=== PATIENT | male | born 1990 | race Caucasian/White ===

== ENCOUNTER 2019-08-26 21:41 | Emergency (ER) | payer OTHER ==
--- NOTE | 2019-08-26 21:47 | ED ---
Psych HPI - General Stated Complaint: Suicidal Ideation Time Seen by Provider: 08/26/19 21:45 - History of Present Illness Initial Comments: The patient is a 29-year-old male with past medical history of depression who presents to the emergency department with reported suicidal ideations. Patient states that he is new to the area. Recently moved here on Friday. Prior to that he was hospitalized in [place] for 8 days. At that time he was having dozier icidal ideations. The placed him on several medications he was discharged home. States he's been unable to sampler pickup his medications because of his health insurance card. Pharmacies have been refusing fill his medications. Because of this he states that his symptoms have been getting out of control. He has felt more depressed the last 3 days. He is having suicidal ideations without a plan. States he's been abusing alcohol and methamphetamines. He is currently homeless. Came to the [facility] because he was told to have several resources. States he has no social support. Reports 2 previous suicide attempts. Did not attempt anything tonight. Patient has a history of hypertension. Has not been taking his high blood pressure medications because he cannot obtain this as well. Denies current intoxication. There are no other alleviating, precipitating or modifying factor Review of Systems ROS Statement: Those systems with pertinent positive or pertinent negative responses have been documented in the HPI. ROS Other: All systems not noted in ROS Statement are negative. General Exam General appearance: alert, in no apparent distress Head exam: Present: atraumatic, normocephalic, normal inspection Eye exam: Present: normal appearance, PERRL, EOMI. Absent: scleral icterus, conjunctival injection, periorbital swelling ENT exam: Present: normal exam, mucous membranes moist Neck exam: Present: normal inspection. Absent: tenderness, meningismus, lymphadenopathy Respiratory exam: Present: normal lung sounds bilaterally. Absent: respiratory distress, wheezes, rales, rhonchi, stridor Cardiovascular Exam: Present: regular rate, normal rhythm, normal heart sounds. Absent: systolic murmur, diastolic murmur, rubs, gallop, clicks GI/Abdominal exam: Present: soft, normal bowel sounds. Absent: distended, tenderness, guarding, rebound, rigid Extremities exam: Present: normal inspection, full ROM, normal capillary refill. Absent: tenderness, pedal edema, joint swelling, calf tenderness Back exam: Present: normal inspection Neurological exam: Present: alert, oriented X3, CN II-XII intact Psychiatric exam: Present: depressed, suicidal ideation Skin exam: Present: warm, dry, intact, normal color. Absent: rash Course Vital Signs 08/26/19 08/27/19 08/27/19 21:48 02:00 06:00 Temperature 98.1 F Pulse Rate 90 86 70 Respiratory 18 18 20 Rate Blood Pressure 162/112 148/90 155/83 O2 Sat by Pulse 99 98 98 Oximetry Medical Decision Making - Medical Decision Making Upon arrival the patient is placed in room 13. A thorough history and physical exam was performed. I did request a urine sample for to patient does provide. Demonstrates small blood with rare mucous. Toxicology shows positive THC. Breathalyzer is negative for alcohol. The patient states he does feel itchiness provided with 50 mg of Benadryl IV mouth. He is cleared for EPS evaluation. He is currently awaiting their assessment. Patient evaluated and inpatient placement was recommended. He was transferred to [facility] in stable condition. - Lab Data Lab Results 08/26/19 Range/Units 22:00 Urine Color Yellow Urine Appearance Clear (Clear) Urine pH 5.5 (5.0-8.0) Ur Specific [place] 1.019 (1.001-1.035) Urine Protein Negative (Negative) Urine Glucose (UA) Negative (Negative) Urine Ketones Negative (Negative) Urine Blood Small H (Negative) Urine Nitrite Negative (Negative) Urine Bilirubin Negative (Negative) Urine Urobilinogen <2.0 (<2.0) mg/dL Ur Leukocyte Esterase Negative (Negative) Urine RBC 5 (0-5) /hpf Urine WBC 1 (0-5) /hpf Ur Squamous Epith Cells <1 (0-4) /hpf Urine Mucus Rare H (None) /hpf Urine Opiates Screen Not Detected (NotDetected) Ur Oxycodone Screen Not Detected (NotDetected) Urine Methadone Screen Not Detected (NotDetected) Ur Propoxyphene Screen Not Detected (NotDetected) Ur Barbiturates Screen Not Detected (NotDetected) U Tricyclic Antidepress Not Detected (NotDetected) Ur Phencyclidine Scrn Not Detected (NotDetected) Ur Amphetamines Screen Not Detected (NotDetected) U Methamphetamines Scrn Not Detected (NotDetected) U Benzodiazepines Scrn Not Detected (NotDetected) Urine Cocaine Screen Not Detected (NotDetected) U Marijuana (THC) Screen Detected H (NotDetected) Disposition Clinical Impression: Depression, Suicidal ideation Disposition: TRANSFER TO PSYCH HOSP/UNIT Condition: Stable Is patient prescribed a controlled substance at d/c from ED?: No Referrals: None,Stated [Primary Care Provider] - 1-2 days - Out of Hospital Transfer - Req. Specs Out of Hospital Transfer - Requested Specifics: Psychiatric Non-ICU
[2019-08-26 22:01] VITALS: TEMP 98.1
[2019-08-26 22:20] LABS: Appearance,Urine Clear (Clear); Bilirubin,Urine Negative (Negative); Blood,Urine Small (Negative); Color,Urine Yellow; Glucose,Urine (UA) Negative (Negative); Ketones,Urine Negative (Negative); Leukocyte Esterase,Urine Negative (Negative); Mucus,Urine Rare /hpf; Nitrite,Urine Negative (Negative); PH, Urine 5.5 (5.0-8.0); Protein,Urine Negative (Negative); RBC,Urine 5 /hpf (0-5); Specific Gravity,Urine 1.019 (1.001-1.035); Squamous Epithelial Cell,Urine <1 /hpf (0-4); Urobilinogen,Urine <2.0 mg/dL (<2.0); WBC,Urine 1 /hpf (0-5)
[2019-08-26 22:39] LABS: Amphetamine Screen,Urine Not Detected (NotDetected); Barbiturate Screen,Urine Not Detected (NotDetected); Benzodiazepines Screen,Urine Not Detected (NotDetected); Cocaine Screen,Urine Not Detected (NotDetected); Methadone Screen, Urine Not Detected (NotDetected); Opiate Screen,Urine Not Detected (NotDetected); Oxycodone Screen, Urine Not Detected (NotDetected); Phencyclidine Screen,Urine Not Detected (NotDetected); Tricyclic Antidepressant,Urine Not Detected (NotDetected); Urn Cannabinoid Scrn Detected (NotDetected)
[2019-08-26] MEDS ORDERED: diphenhydrAMINE 50 MG CAP PO STA (23:49)
[2019-08-27 06:15] VITALS: BP 155/83; PULSE 70; RESP 20
== END 2019-08-27 06:37 ==
LOC: EC 21:41
DX: F32.9 Major depressive disorder, single episode, unspecified (principal); R45.851 Suicidal ideations; I10 Essential (primary) hypertension; Z59.0 Homelessness; Z91.5 Personal history of self-harm
CPT/HCPCS: 80306; 81001; 82075; 99285